=== PATIENT | female | born 1945 | race Caucasian/White ===

== ENCOUNTER 2017-09-29 07:48 | Day surgery (SDC) | payer MEDICARE, OTHER ==
[2017-09-29] MEDS: NS 1,000 ML IV (08:00)
[2017-09-29] MEDS ORDERED: LIDOCAINE 2% INJ 100 MG/5 ML SDV (FOR ANES.) As Ordered (08:35)
[2017-09-29] MEDS ORDERED: PROPOFOL 200 MG/20 ML VIAL As Ordered (08:35)
== END 2017-09-29 10:02 | disposition home or self-care (01) ==
LOC: M OPP 07:48
DX: Z12.11 Encounter for screening for malignant neoplasm of colon (principal); I10 Essential (primary) hypertension; E78.5 Hyperlipidemia, unspecified; I25.2 Old myocardial infarction; I25.10 Atherosclerotic heart disease of native coronary artery without angina pectoris; Z95.5 Presence of coronary angioplasty implant and graft; Z85.828 Personal history of other malignant neoplasm of skin; Z78.0 Asymptomatic menopausal state; Z79.82 Long term (current) use of aspirin; Z79.899 Other long term (current) drug therapy
CPT/HCPCS: G0121

== ENCOUNTER → 2021-09-23 | Outpatient (REF) | payer MEDICARE, OTHER ==
[~2021-09-23] MED LIST: ASPI81TA26 PO; CARV3.12; CYAN100049 PO; FISH100049 PO; FLAX10005 PO; GARL10004 PO; LOSA50TA28; MULT1TAB10 PO; NITR0.4S14; ROSU5TAB5; ST J300C15 PO; VISICAP PO; VITA-243 PO; VITA400C7 PO; VITA50TA43 PO
== END ==
LOC: M LAB REF 12:24
PROVIDERS: ATTEND Obstetrics & Gynecology
DX: L02.224 Furuncle of groin (principal)

== ENCOUNTER → 2023-05-31 | Outpatient (REF) | payer MEDICARE, OTHER ==
[2023-05-31 17:16] LABS: RSV AMPLIFICATION NEGATIVE (NEGATIVE)
== END ==
LOC: M LAB REF 16:15
PROVIDERS: ATTEND Nurse Practitioner Family
DX: R53.83 Other fatigue (principal); R53.1 Weakness; R09.82 Postnasal drip

== ENCOUNTER → 2023-06-16 | Outpatient (CLI) | payer MEDICARE, OTHER | LOC: M WUC 11:41 | PROVIDERS: ATTEND Family Medicine | DX: M47.816 Spondylosis without myelopathy or radiculopathy, lumbar region (principal); M46.97 Unspecified inflammatory spondylopathy, lumbosacral region; M54.59 Other low back pain ==

== ENCOUNTER → 2023-07-01 | Outpatient (CLI) | payer MEDICARE, OTHER ==
[~2023-07-01] MED LIST changes: +GASTROGRAFIN SOLUTION 30ML As Ordered ONE; +ISOVUE-370 76% 100ML VIAL As Ordered ONE
== END ==
LOC: M RAD 14:24
PROVIDERS: ATTEND Family Medicine
DX: K86.9 Disease of pancreas, unspecified (principal); K76.9 Liver disease, unspecified; K80.20 Calculus of gallbladder without cholecystitis without obstruction; R94.5 Abnormal results of liver function studies
CPT/HCPCS: 74177; Q9963; Q9967

== ENCOUNTER 2023-07-16 11:07 | Emergency (ER) | payer MEDICARE, OTHER ==
[~2023-07-16] VITALS: Ht 147.3 cm; Wt 118.0 kg
[~2023-07-16 11:07] MED LIST changes: -GASTROGRAFIN SOLUTION 30ML As Ordered ONE; -ISOVUE-370 76% 100ML VIAL As Ordered ONE
[2023-07-16] MEDS ORDERED: CALCTAB41 PO (11:22)
[2023-07-16] MEDS ORDERED: EZET10TA21 PO (11:22)
[2023-07-16 14:43] VITALS: BP 171/84; TEMP 98.8; O2SAT 100
[2023-07-16] MEDS: ACETAMINOPHEN 325 MG TAB PO ONE (15:06)
[2023-07-16] MEDS: MAGNESIUM CITRATE 300ML BTL PO ONE (15:06)
[2023-07-16] MEDS ORDERED: MIRA3350 PO (16:25)
[2023-07-16] MEDS ORDERED: COLA100C5 PO (16:25)
== END 2023-07-16 16:52 | disposition home or self-care (01) ==
LOC: M ED 11:07
DX: K56.41 Fecal impaction (principal); I10 Essential (primary) hypertension; E78.5 Hyperlipidemia, unspecified; Z79.82 Long term (current) use of aspirin; Z79.811 Long term (current) use of aromatase inhibitors; Z79.899 Other long term (current) drug therapy